=== PATIENT | male | born 1955 | race Caucasian/White ===

== ENCOUNTER 2017-02-08 09:32 | Emergency (ER) | payer BC ==
[~2017-02-08] VITALS: Ht 160 cm; Wt 78.0 kg
[~2017-02-08 09:32] MED LIST: ASPI81TA3 PO; CEPH500C PO; COLE625T2 PO; DOCU-144 PO; LEVO50TA74 PO; NASO17 NASAL; PANT40TA4 PO; PRAV20TA63 PO
[2017-02-08 09:47] VITALS: Ht 160 cm; Wt 78.0 kg
--- NOTE | 2017-02-08 12:01 | RADRPT ---
PROCEDURE: US DVT. CLINICAL INDICATION: Right lower extremity pain. TECHNIQUE: Multiple longitudinal and transverse images of the right lower extremity veins were obt ained with umana scale and color Doppler imaging. 2D grayscale measurements with compression, color Doppler flow, and augmentation was performed. The calf veins were interrogated as well. COMPARISON: No prior studies are available for comparison. FINDINGS: The right common femoral, superficial femoral and popliteal veins are normally compressible througho ut. Color flow demonstrates normal filling of the vessel. Normal waveforms are visualized and ther e is normal response to augmentation. IMPRESSION: 1. No evidence of a deep vein thrombosis involving the right lower extremity. RPTAT: [facility] Physician Lillian Date Time Electronically viewed and signed by Physician Lillian on 02/08/2017 12:01 /
--- NOTE | 2017-02-08 12:20 | RADRPT ---
PROCEDURE: Chest x-ray CLINICAL INDICATION: Chest pain TECHNIQUE: Chest single view COMPARISON: 10/21/2016 FINDINGS: As before, there is a left chest single lead pacemaker. There is persistent volume loss and consoli dation of the left lung with shift of the mediastinal structures to the left. There is questionable small component of left pleural fluid as well. The right lung is normally expanded. Right lung is clear. Right costophrenic angle sharp. IMPRESSION: 1. Persistent extensive volume loss of the left lung and left lung consolidation with shift of the mediastinal structures to the left. This is stable and unchanged. Suspect small left pleural effus ion and pleural thickening as well. 2. Right lung clear. 3. Pacemaker. 4. No significant change RPTAT: HH .Brett Gilliland MD, Date Time Electronically viewed and signed by .Brett Gilliland MD, on 02/08/2017 12:20 .W/
--- NOTE | 2017-02-08 13:25 | ERD ---
ER Documentation Chief Complaint Date/Time DATE: 02/08/17 TIME: 10:50 Chief Complaint Cough sent from oncologist for evalution of lungs HPI 62-year-old male with history of lung CA treated with radiation, chemotherapy and surgery in remission, hyperlipidemia, COPD, pacemaker in 2016 and bronchitis who was admitted to [facility] last week for community acquired pneumonia referred to the ED yesterday by Dr. Franz for evaluation of cough and congestion. Patient currently asymptomatic and feels well. Denies chest pain, shortness of breath or cough. No URI symptoms, rhinorrhea or odynophagia. No abdominal pain, nausea vomiting. Denies leg pain or swelling. No headache or neck pain. No fevers or chills. ROS All systems reviewed and are negative except as per history of present illness. Medications Home Meds Active Scripts Cephalexin* (Cephalexin*) 500 Mg Capsule, 500 MG PO Q6 for 10 Days, CAP Prov:LIBAN BEATTY 10/22/16 Pantoprazole* (Pantoprazole*) 40 Mg Tablet.dr, 40 MG PO DAILY@06 for 30 Days Prov:LIBAN BEATTY 10/22/16 Docusate Sodium* (Colace*) 100 Mg Capsule, 100 MG PO BID for 30 Days, CAP Prov:LIBAN BEATTY 10/22/16 Colesevelam Hcl* (Welchol*) 625 Mg Tablet, 1875 MG PO BID, #30 TAB Prov:LIBAN BEATTY 10/22/16 Reported Medications Mometasone Furoate* (Nasonex*) 50 Mcg/[employer] - 17 Gm [employer].pump, 1 SPRAY NASAL DAILY, #1 BOTTLE TO EACH NOSTRIL 10/17/16 Levothyroxine Sodium* (Levothyroxine Sodium*) 50 Mcg Tablet, 50 MCG PO BEFORE BREAKFAST, #30 TAB 10/17/16 Aspirin* (Aspirin* Chew) 81 Mg Tab.chew, 81 MG PO EVERY OTHER DAY, TAB.CHEW 10/17/16 Pravastatin Sodium* (Pravastatin Sodium*) 20 Mg Tablet, 20 MG PO HS, TAB 10/17/16 Colesevelam Hcl* (Welchol*) 625 Mg Tablet, 1875 MG PO BID, TAB 10/17/16 Allergies Allergies: Coded Allergies: Tetanus Vaccines and Toxoid (Verified Allergy, Severe, 10/17/16) PMhx/Soc Reviewed in chart. As per HPI. History of Surgery: Yes Hx Neurological Disorder: Yes (g weakness) Hx Respiratory Disorders: Yes Hx Cardiac Disorders: No Hx Psychiatric Problems: No Hx Alcohol Use: Yes Hx Substance Use: Yes Hx Tobacco Use: No Smoking Status: Never smoker FmHx Not relevant to presenting complaint. Physical Exam Vitals Vital Signs Date Time Temp Pulse Resp B/P Pulse Ox O2 Delivery O2 Flow Rate FiO2 02/08/17 09:47 97.7 81 20 109/57 99 Physical Exam Const: Alert, no acute distress. Head: Atraumatic Eyes: Normal Conjunctiva ENT: Normal External Ears, Nose and Mouth. Neck: Full range of motion no JVD. Resp: Right lung is clear, markedly decreased breath sounds left lung field. No wheezing. Cardio: Regular rate and rhythm, no murmurs Abd: Soft, non tender, non distended. Normal bowel sounds Skin: No petechiae or rashes Back: No midline or flank tenderness Ext: No cyanosis, or edema Neur: Awake and alert Psych: Normal Mood and Affect Results 24 hrs IMAGING: ROCEDURE: US DVT. CLINICAL INDICATION: Right lower extremity pain. TECHNIQUE: Multiple longitudinal and transverse images of the right lower extremity veins were obtained with umana scale and color Doppler imaging. 2D grayscale measurements with compression, color Doppler flow, and augmentation was performed. The calf veins were interrogated as well. COMPARISON: No prior studies are available for comparison. FINDINGS: The right common femoral, superficial femoral and popliteal veins are normally compressible throughout. Color flow demonstrates normal filling of the vessel. Normal waveforms are visualized and there is normal response to augmentation. IMPRESSION: 1. No evidence of a deep vein thrombosis involving the right lower extremity. RPTAT: [facility] Physician Lillian Date Time Electronically viewed and signed by Physician Lillian on 02/08/2017 12: 01 JH/ PROCEDURE: Chest x-ray CLINICAL INDICATION: Chest pain TECHNIQUE: Chest single view COMPARISON: 10/21/2016 FINDINGS: As before, there is a left chest single lead pacemaker. There is persistent volume loss and consolidation of the left lung with shift of the mediastinal structures to the left. There is questionable small component of left pleural fluid as well. The right lung is normally expanded. Right lung is clear. Right costophrenic angle sharp. IMPRESSION: 1. Persistent extensive volume loss of the left lung and left lung consolidation with shift of the mediastinal structures to the left. This is stable and unchanged. Suspect small left pleural effusion and pleural thickening as well. 2. Right lung clear. 3. Pacemaker. 4. No significant change RPTAT: HH .Brett Gilliland MD, MD Date Time Electronically viewed and signed by .Brett Gilliland MD, on 02/08/2017 12:20 .W/ Procedures/MDM DOCUMENTS REVIEWED: ED nurse, prior records, admission history and physical, progress as a discharge summary from [facility] 01/30/2017 through 02/05/2017. MEDICAL DECISION MAKIN-year-old male with history of lung CA treated with radiation, chemotherapy and surgery in remission, hyperlipidemia, COPD, pacemaker in 2016 and bronchitis who was admitted to [facility] last week for community acquired pneumonia referred to the ED yesterday by Dr. Franz for evaluation of cough and congestion. Venous Dopplers and chest is performed as per her request. No evidence of DVT. Lungs clear without residual infiltrate or pneumonia. Stable for discharge. Patient will be given a prescription for Robitussin with codeine as per Dr. Franz's request. Stable for discharge with precautionary instructions and outpatient follow-up is counseled. CALLS/CONSULTS: Time 10:55, Dr. Franz, Recommends chest x-ray, Doppler of the lower extremity ankle her back with results. CALLS/CONSULTS: Time 10:55, Dr. Franz. Results discussed. Recommends discharge home with strong cough medicine. Counseled patient and family regarding diagnostic workup, diagnosis and need for followup. Understands to return to ED if symptoms recur, worsen or any other concerns. Departure Diagnosis: Primary Impression: Cough Additional Impression: History of lung cancer Condition: Stable Patient Instructions: Cough, Chronic, Uncertain Cause, (Adult) SHANIA AZUL MD Feb 08, 2017 13:19
[2017-02-08] MEDS ORDERED: UDROBAC PO (13:27)
[2017-02-08 13:33] VITALS: BP 112/57; PULSE 77; RESP 18; TEMP 97.6
== END 2017-02-08 13:35 | disposition home or self-care (01) ==
LOC: E/R 09:32
DX: R05 Cough (principal); J44.9 Chronic obstructive pulmonary disease, unspecified; Z95.0 Presence of cardiac pacemaker; Z85.118 Personal history of other malignant neoplasm of bronchus and lung
CPT/HCPCS: 71010; 93971